=== PATIENT | female | born 1980 | race Caucasian/White ===

== ENCOUNTER → 2019-10-08 17:52 | Outpatient (CLI) | payer OTHER, SELFPAY ==
--- NOTE | ~2019-10-08 | MM_ITS ---
EXAMINATION: MM screening song BI w augustine HISTORY: Screening mammogram TECHNIQUE: Craniocaudal and mediolateral oblique 3-D tomosynthesis images were obtained and synthetic 2-D images were generated. CAD analysis was submitted and interpreted. COMPARISON: None, baseline BREAST PARENCHYMAL COMPOSITION: There are scattered areas of fibroglandular density. FINDINGS: There is no evidence of suspicious mass, calcification, or architectural distortion to sugg est malignancy in either breast. IMPRESSION: 1. No mammographic evidence of malignancy. 2. Recommend routine screening mammography in one year. BI-RADS Category 1: Negative Reviewed, dictated and finalized at location A.
== END ==
PROVIDERS: Visit Provider Nurse Practitioner Obstetrics & Gynecology
DX: Z12.31 Encounter for screening mammogram for malignant neoplasm of breast (principal)
CPT/HCPCS: 77063; 77067

== ENCOUNTER 2020-06-05 09:35 | Outpatient (CLI) | payer OTHER, SELFPAY ==
[2020-06-05 10:07] LABS: Alanine Aminotransferase 15 U/L (4-35); Albumin Level 4.4 g/dL (3.5-5.1); Alkaline Phosphatase 70 U/L (38-126); Anion Gap 6 mmol/L (8-16); Aspartate Amino Transferase 19 U/L (14-36); Bilirubin,Total 0.7 mg/dL (0.2-1.3); Blood Urea Nitrogen 21 mg/dL (7-17); Carbon Dioxide 31 mmol/L (22-30); Chloride 102 mmol/L (98-107); Estimated Glomerular Filt Rate > 60; Glucose 98 mg/dL (65-105); Potassium 4.5 mmol/L (3.4-5.0); Sodium 139 mmol/L (137-145)
[2020-06-05 11:31] LABS: Vitamin D 25 Hydroxy 53.8 ng/mL
== END 2020-06-05 09:36 | disposition home or self-care (01) ==
PROVIDERS: PCP Internal Medicine; Visit Provider Clinical Nurse Specialist
DX: I10 Essential (primary) hypertension (principal); E55.9 Vitamin D deficiency, unspecified
CPT/HCPCS: 36415; 80053; 82306

== ENCOUNTER → 2020-12-16 15:14 | Outpatient (CLI) | payer OTHER, SELFPAY ==
--- NOTE | ~2020-12-16 | MM_ITS ---
EXAMINATION: MM screening song BI w augustine HISTORY: Screening TECHNIQUE: Craniocaudal and mediolateral oblique 3-D tomosynthesis images were obtained and synthetic 2-D images were generated. CAD analysis was submitted and interpreted. COMPARISON: 10/08/2019 BREAST PARENCHYMAL COMPOSITION: There are scattered areas of fibroglandular density. FINDINGS: There is no evidence of suspicious mass, calcification, or architectural distortion to sugg est malignancy in either breast. There has been no suspicious interval change. IMPRESSION: 1. No mammographic evidence of malignancy. 2. Recommend routine screening mammography in one year. BI-RADS Category 1: Negative Reviewed, dictated and finalized at location A.
== END ==
PROVIDERS: Visit Provider Nurse Practitioner Obstetrics & Gynecology
DX: Z12.31 Encounter for screening mammogram for malignant neoplasm of breast (principal)
CPT/HCPCS: 77063; 77067

== ENCOUNTER 2022-03-18 09:37 | Outpatient (CLI) | payer OTHER, SELFPAY ==
--- NOTE | 2022-03-18 10:03 | ECG_ITS ---
Measurements Intervals [place] Rate: 70 P: 50 WA: 150 QRS: 10 QRSD: 89 T: 4 QT: 390 QTc: 423 Interpretive Statements SINUS RHYTHM NORMAL ELECTROCARDIOGRAM NO PREVIOUS ECG AVAILABLE FOR COMPARISON Electronically Signed On 03-18-2022 12:04:46 CDT by Ashok Vee M.D.
== END 2022-03-18 09:38 | disposition home or self-care (01) ==
LOC: ANHCARD 09:38
PROVIDERS: Visit Provider Nurse Practitioner
DX: E66.9 Obesity, unspecified (principal)
CPT/HCPCS: 93005

== ENCOUNTER 2022-03-25 11:43 | Emergency (ER) | payer OTHER, SELFPAY ==
[2022-03-25 12:10] VITALS: BP 178/97; PULSE 88; RESP 18; TEMP 36.5; O2SAT 99
--- NOTE | 2022-03-25 13:55 | ED.GENADULT ---
HPI - General Adult General Chief complaint: Recheck/Abnormal Lab/Rx Stated complaint: high blood pressure Time Seen by Provider: 03/25/22 12:33 History of Present Illness HPI narrative: 42-year-old female history of depression anxiety and hypertension presenting the emergency department for evaluation of elevated blood pressures. Patient states a few years ago she had been taking lisinopril 5 mg daily but she had had weight loss and was able to stop her medications due to improved blood pressure. Patient states over the last few years she has had some weight gain. Patient had a blood pressure checked in December and she states it was within normal limits. Patient had her blood pressure checked a few weeks ago and was noted to be hypertensive by her [employer]. Patient had follow-up again and today noticed that her blood pressure was normal systolic over 107. Patient reports her blood pressure at home was 158/98. Upon arrival to the emergency department her blood pressure was 138/97. Patient denies any complaints with this. Patient has no chest pain or shortness of breath. Patient denies any nausea vomiting diarrhea. Patient denies any headache or change in urination. Related Data Home Medications Medication Instructions Recorded Confirmed sertraline 25 mg tablet (Zoloft) 25 mg PO DAILY 11/29/19 06/05/20 Allergies Allergy/AdvReac Type Severity Reaction Status Date / Time No Known Allergies Allergy Mild Unverified 12/03/08 19:12 Review of Systems Review of Systems: CONSTITUTIONAL: Denies fever, chills, or sweats. EYES: Denies visual changes, redness, or discharge. ENT: Denies rhinorrhea, congestion, sore throat, or otalgia. CARDIOVASCULAR: Denies chest pain, palpitations, or edema. RESPIRATORY: Denies cough or dyspnea. GASTROINTESTINAL: Denies abdominal pain, nausea, vomiting, or diarrhea. GENITOURINARY: Denies dysuria or hematuria. SKIN: Denies rash or itching. MUSCULOSKELETAL: Denies back pain, joint pain, or myalgia. NEUROLOGIC: Denies headache, numbness, or weakness. [facility] Past Medical History Medical History (Updated 03/26/22 @ 00:00 by Delroy Klein) Benign essential HTN Cholecystectomy planned Generalized headaches Miscarriage Family History Family History (Updated 11/29/19 @ 07:30 by Xuan Crowe) Mother Patient's mother is in good health Father Patient's father is in good health Sibling Prediabetes Social History Social History Smoking status: Never smoker Alcohol intake: current Exam Narrative: APPEARANCE: Well appearing, no pain, no distress, well-nourished. HEAD: normocephalic, atraumatic. EYES: PERRLA/EOMI, conjunctivae clear. NOSE: Normal no drainage THROAT: Pharynx clear, no exudate. NECK: Supple. No adenopathy, no masses. RESPIRATORY: Airway patent, respirations nonlabored. Clear to auscultation bilaterally, no rales, rhonchi, wheezing. CARDIOVASCULAR: Regular rate and rhythm without murmurs rubs or gallops. ABDOMINAL: Soft, nontender, nondistended, normal bowel sounds MUSCULOSKELETAL: Moves all extremities. Strength/ROM intact, No edema, No calf tenderness. NEURO: Alert. Cranial nerves II through XII intact. Grossly intact SKIN: Warm, dry. Normal Color Course Course Emergency Course: Patient does have follow-up scheduled on Monday with her primary care physician but she had been encouraged to follow-up with the emergency department today. PCP was paged to see if they want the patient to restart her lisinopril. Vital Signs Vital signs: Vital Signs Temperature 97.7 F 03/25/22 12:10 Pulse Rate 88 03/25/22 12:10 Respiratory Rate 18 03/25/22 12:10 Blood Pressure 178/97 H 03/25/22 12:10 Pulse Oximetry 99 03/25/22 12:10 Oxygen Delivery Room Air 03/25/22 12:10 Temperature 97.7 F 03/25/22 12:10 Pulse Rate 89 03/25/22 14:14 Respiratory Rate 14 03/25/22 14:14 Blood Pressure 158/99 H 03/25/22 14:14 Pulse Oximetry 100 03/25/22 14:1
[2022-03-25 14:14] VITALS: BP 158/99; PULSE 89; RESP 14; O2SAT 100
[2022-03-25] MEDS: lisinopriL 5 MG TABLET PO (14:14)
== END 2022-03-25 14:16 | disposition home or self-care (01) ==
PROVIDERS: Emergency Provider Emergency Medicine; PCP Internal Medicine
DX: I10 Essential (primary) hypertension (principal); F41.9 Anxiety disorder, unspecified; F32.A Depression, unspecified
CPT/HCPCS: 99283; A9270

== ENCOUNTER 2022-04-29 08:31 | Outpatient (CLI) | payer OTHER, SELFPAY ==
[2022-04-29 09:28] LABS: Anion Gap 11 mmol/L (8-16); Blood Urea Nitrogen 14 mg/dL (7-17); Calcium 9.1 mg/dL (8.4-10.2); Carbon Dioxide 29 mmol/L (22-30); Chloride 100 mmol/L (98-107); Estimated Glomerular Filt Rate > 60; Glucose 127 mg/dL (65-110); Potassium 4.2 mmol/L (3.4-5.0); Sodium 140 mmol/L (137-145)
== END 2022-04-29 08:32 | disposition home or self-care (01) ==
PROVIDERS: PCP Internal Medicine; Visit Provider Clinical Nurse Specialist
DX: I10 Essential (primary) hypertension (principal)
CPT/HCPCS: 36415; 80048

== ENCOUNTER → 2022-05-13 10:56 | Outpatient (CLI) | payer OTHER, SELFPAY ==
--- NOTE | ~2022-05-13 | MM_ITS ---
EXAMINATION: MM screening [facility] BI w augustine HISTORY: Screening TECHNIQUE: Craniocaudal and mediolateral oblique 3-D tomosynthesis images were obtained and synthetic 2-D images were generated. CAD analysis was submitted and interpreted. COMPARISON: Comparison to multiple prior studies sequentially, with oldest reviewed study dated 10/07. BREAST PARENCHYMAL COMPOSITION: There are scattered areas of fibroglandular density. FINDINGS: There is no evidence of suspicious mass, calcification, or architectural distortion to sugg est malignancy in either breast. There has been no suspicious interval change. IMPRESSION: 1. No mammographic evidence of malignancy. 2. Recommend routine screening mammography in one year. BI-RADS Category 1: Negative Reviewed, dictated and finalized at location A.
== END ==
PROVIDERS: PCP Internal Medicine; Visit Provider Nurse Practitioner Obstetrics & Gynecology
DX: Z12.31 Encounter for screening mammogram for malignant neoplasm of breast (principal)
CPT/HCPCS: 77063; 77067

== ENCOUNTER 2023-11-17 07:48 | Outpatient (CLI) | payer OTHER, SELFPAY ==
[2023-11-17 08:10] LABS: Basophils Percent Auto 0.5 % (0.2-1.2); Eosinophils Absolute Auto 0.2 K/mm3 (0-0.3); Eosinophils Percent Auto 2.9 % (0-4.4); Hemoglobin 12.8 g/dL (12.0-15.0); Immature Granulocyte Absolute 0.02 K/mm3 (0.00-0.031); Immature Granulocyte Percent A 0.4 % (0-0.5); Lymphocytes Absolute Auto 1.32 K/mm3 (0.9-3.2); Lymphocytes Percent Auto 23.6 % (18.3-44.2); Mean Corpuscular HGB Conc 32.8 g/dl (32-36); Mean Corpuscular Hemoglobin 29.6 pg (26-34); Mean Corpuscular Volume 90.3 fl (80-100); Mean Platelet Volume 10.3 fl (7.4-10.4); Monocytes Absolute Auto 0.3 K/mm3 (0.1-0.6); Neutrophils Absolute Auto 3.8 K/mm3 (1.3-6.7); Neutrophils Percent Auto 67.6 % (45.5-73.1); Platelet Count Result 231 k/mm3 (150-375); Red Blood Count 4.32 M/mm3 (4.2-5.4); Red Cell Distribution Width 13.1 % (11.5-14.5); White Blood Count 5.6 K/mm3 (4.5-10.0)
[2023-11-17 08:17] LABS: Alanine Aminotransferase 10 U/L (6-35); Albumin Level 4.6 g/dL (3.5-5.1); Alkaline Phosphatase 64 U/L (38-126); Anion Gap 4 mmol/L (4-12); Aspartate Amino Transferase 15 U/L (14-36); Bilirubin,Total 0.7 mg/dL (0.2-1.3); Blood Urea Nitrogen 19 mg/dL (7-17); Calcium 10.1 mg/dL (8.4-10.2); Carbon Dioxide 30 mmol/L (22-30); Chloride 106 mmol/L (98-107); Cholesterol 180 mg/dL (0-200); Estimated Glomerular Filt Rate 60; Glucose 99 mg/dL (65-110); HDL Direct 38 mg/dL; Potassium 4.6 mmol/L (3.4-5.0); Sodium 140 mmol/L (137-145); Triglycerides 100 mg/dL (<150)
[2023-11-17 08:28] LABS: LDL Cholesterol Direct 110 mg/dL
[2023-11-17 09:28] LABS: Vitamin D 25 Hydroxy 78.9 ng/mL
== END 2023-11-17 07:49 | disposition home or self-care (01) ==
LOC: ANHLAB 07:49
PROVIDERS: PCP Internal Medicine; Visit Provider Clinical Nurse Specialist
DX: E55.9 Vitamin D deficiency, unspecified (principal); I10 Essential (primary) hypertension; Z13.228 Encounter for screening for other metabolic disorders
CPT/HCPCS: 36415; 80053; 80061; 82306; 84443; 85025

== ENCOUNTER 2024-05-31 10:04 | Outpatient (CLI) | payer OTHER, SELFPAY ==
--- NOTE | ~2024-05-31 | MM_ITS ---
EXAMINATION: MM screening song BI w augustine HISTORY: Screening mammogram TECHNIQUE: Craniocaudal and mediolateral oblique 3-D tomosynthesis images were obtained and synthetic 2-D images were generated. CAD analysis was submitted and interpreted. COMPARISON: 05/13/2022, 12/16/2020, 10/08/2019 BREAST PARENCHYMAL COMPOSITION:Not Dense. The breasts are almost entirely fatty FINDINGS: No suspicious mass, calcification, or architectural distortion are identified in either [place] ast to suggest malignancy. There has been no suspicious interval change. IMPRESSION: No mammographic evidence of malignancy. Recommend routine screening mammography in one year. BI-RADS Category 1: Negative Reviewed, dictated and finalized at location .
== END 2024-05-31 10:05 | disposition home or self-care (01) ==
PROVIDERS: PCP Internal Medicine; Visit Provider Nurse Practitioner Obstetrics & Gynecology
DX: Z12.31 Encounter for screening mammogram for malignant neoplasm of breast (principal)
CPT/HCPCS: 77063; 77067

== ENCOUNTER 2024-07-11 07:58 | Day surgery (SDC) | payer OTHER, SELFPAY ==
[2024-05-16 10:02] VITALS: BMI 33.2
[2024-06-21 11:04] VITALS: BMI 33.0
[2024-07-11 08:39] VITALS: BP 114/76; PULSE 88; RESP 18; TEMP 36.8; O2SAT 98; BMI 32.3
[2024-07-11] MEDS: LACTATED RINGERS 1,000 ML 150 ML IV CONT (08:53)
--- NOTE | 2024-07-11 09:24 | P.HP_ITS ---
History of Present Illness History of Present Illness Consent: Risks, benefits, and alternatives have been discussed and questions answered. Patient agrees to proceed with procedure. Chief complaint: Screening for Neoplasm of Colon Narrative: Ladi Grewal is a 44 year old female presents for screening colonoscopy. Patient's current weight appetite and bowel movements are normal. Patient denies abdominal pain. She has had no bleeding. Family history is nonc ontributory. Review of Systems Review of Systems: All systems reviewed & are unremarkable except as noted in HPI and below PMFSH Past Medical History Medical History Benign essential HTN Cholecystectomy planned Generalized headaches Miscarriage Family History Family History Mother No problems noted. Father Patient's father is in good health Sibling Prediabetes Social History Social History Smoking status: Never smoker Alcohol intake: current Meds Home Medications and Allergies Home Medications ?Medication ?Instructions ?Recorded ?Confirmed ?Type sertraline 50 mg tablet 50 mg PO DAILY 03/28/22 07/11/24 History phentermine 37.5 mg tablet 37.5 mg PO DAILY #30 tabs 05/10/24 07/11/24 Rx topiramate 25 mg tablet (Topamax) 25 mg PO DAILY #90 tabs 05/10/24 07/11/24 Rx ascorbic acid (vitamin C) 500 mg 500 mg PO DAILY 06/21/24 07/11/24 History tablet cholecalciferol (vitamin D3) 50 50 mcg PO DAILY 06/21/24 07/11/24 History mcg (2,000 unit) capsule (Vitamin D3) lisinopril 5 mg tablet 5 mg PO DAILY #90 tabs 06/24/24 07/11/24 Rx Allergies Allergy/AdvReac Type Severity Reaction Status Date / Time No Known Allergies Allergy Mild Verified 07/11/24 08:35 Vital Signs Vital Signs - 24 hr 07/11/24 08:39 Temperature 98.2 F Pulse Rate 88 Respiratory Rate 18 Blood Pressure 114/76 Pulse Oximetry 98 Oxygen Delivery Room Air Exam Narrative: Physical exam reveals patient to be alert. Vital signs stable. HEENT exam is unremarkable. Patient is anicteric. Lungs are clear to auscultation and to percussion. Heart is without murmur or extra sounds. Abdomen bowel sounds are present soft nontender with no organomegaly. Digital external rectal exam normal. Assessment and Plan Assessment and plan (1) Screening for colon cancer: Code(s): Z12.11 - Encounter for screening for malignant neoplasm of colon Status: Acute Assessment and Plan: Patient presents today for neoplasia screening colonoscopy. Further recommendations may be given after endoscopy.
--- NOTE | 2024-07-11 09:31 | P.PNAN_ITS ---
Anes - Initial Pre Proc Eval Procedure: Operation Date: 07/11/24 10:15 Proposed Procedures p Screening Colonoscopy - Hosea Woodward MD Date/Time: 07/11/24 09:31 Surgeon: Hosea Woodward MD Pre Op Diagnosis: Screening for Neoplasm of Colon Patient Data Age: 44 Gender: F Height: 1.57 m Weight: 80.2 kg Last Vital Signs Temp 36.8 C 07/11/24 08:39 Pulse 88 07/11/24 08:39 Resp 18 07/11/24 08:39 BP 114/76 07/11/24 08:39 Pulse Ox 98 07/11/24 08:39 O2 Del Method Room Air 07/11/24 08:39 Allergies Allergy/AdvReac Type Severity Reaction Status Date / Time No Known Allergies Allergy Mild Verified 07/11/24 08:35 Home Medications ?Medication ?Instructions ?Recorded ?Confirmed ?Type sertraline 50 mg tablet 50 mg PO DAILY 03/28/22 07/11/24 History phentermine 37.5 mg tablet 37.5 mg PO DAILY #30 tabs 05/10/24 07/11/24 Rx topiramate 25 mg tablet (Topamax) 25 mg PO DAILY #90 tabs 05/10/24 07/11/24 Rx ascorbic acid (vitamin C) 500 mg 500 mg PO DAILY 06/21/24 07/11/24 History tablet cholecalciferol (vitamin D3) 50 50 mcg PO DAILY 06/21/24 07/11/24 History mcg (2,000 unit) capsule (Vitamin D3) lisinopril 5 mg tablet 5 mg PO DAILY #90 tabs 06/24/24 07/11/24 Rx Patient hx anesthesia problems: none Family hx anesthesia problems: none Results Review: All pre-operative results and documents have been reviewed as part of the pre- operative evaluation. [facility] Past Medical History Medical History (Updated 07/11/24 @ 09:31 by Robi Gomez MD) Benign essential HTN Miscarriage Generalized headaches Surgical History Surgical History (Updated 07/11/24 @ 09:31 by Robi Gomez MD) History of cholecystectomy Family History Family History Mother No problems noted. Father Patient's father is in good health Sibling Prediabetes Social History Social History Smoking status: Never smoker Alcohol intake: current Anes - Eval Final PreProcedure Day of Procedure 07/11/24 09:31 Patient weight: obese Heart: regular rate and rhythm Lungs: clear to auscultation Airway: Mallampati scale class II Neurological: alert and oriented Last oral intake: >/= 8 hours ASA classification: II Emergent: no Anesthetic plan: proceed Anesthesia type and monitoring: general GIVS and standard monitoring Results Review: All pre-operative results and documents have been reviewed as part of the pre- operative evaluation. Informed Consent: The patient's anesthetic plan and its attendant risks and benefits were discussed with the patient/family/POA. Questions were solicited and answers provided to the satisfaction of the patient/family/POA.
[2024-07-11 10:40] VITALS: BP 86/51; PULSE 90; RESP 12; O2SAT 98
[2024-07-11 10:50] VITALS: BP 103/65; PULSE 84; RESP 16; O2SAT 100
[2024-07-11 11:00] VITALS: BP 93/65; PULSE 85; RESP 16; O2SAT 100
--- NOTE | 2024-07-11 11:14 | WPDANESPN ---
Anes - Prog Note Post-Op Date/Time: 07/11/24 11:14 Cardiovascular status: normal Respiratory status: normal Airway patency: baseline Mental status: baseline Post-Op hydration status: normal Vital Signs: Last Vital Signs Temp 36.8 C 07/11/24 08:39 Pulse 84 07/11/24 10:50 Resp 16 07/11/24 10:50 BP 103/65 07/11/24 10:50 Pulse Ox 100 07/11/24 10:50 O2 Del Method Room Air 07/11/24 10:50 Pain Score (VAS): 0/10 I/O: Intake & Output 07/10/24 07/11/24 07/11/24 23:59 07:59 15:59 Intake Total 500 Balance 500 Patient Feedback: Patient satisfied with anesthetic care.
== END 2024-07-11 11:14 | disposition home or self-care (01) ==
PROVIDERS: PCP Internal Medicine; Visit Provider Internal Medicine Gastroenterology
PROC: 0DJD8ZZ Inspection of Lower Intestinal Tract, Via Natural or Artificial Opening Endoscopic (ICD-10-PCS; CPT 45378; principal; 2024-07-11 10:15)
DX: Z12.11 Encounter for screening for malignant neoplasm of colon (principal); K64.8 Other hemorrhoids
CPT/HCPCS: 45378

== ENCOUNTER 2025-06-06 09:52 | Outpatient (CLI) | payer OTHER, SELFPAY ==
--- NOTE | ~2025-06-06 | MM_ITS ---
EXAMINATION: MM screening song BI w augustine HISTORY: Screening TECHNIQUE: Craniocaudal and mediolateral oblique 3-D tomosynthesis images were obtained and synthetic 2-D images were generated. CAD analysis was submitted and interpreted. COMPARISON: Comparison to multiple prior studies sequentially, with oldest reviewed study dated 05/31/2024. BREAST PARENCHYMAL COMPOSITION: Not Dense: The breasts are almost entirely fatty. FINDINGS: There is no evidence of suspicious mass, calcification, or architectural distortion to suggest malignancy in either breast. There has been no suspicious interval change. IMPRESSION: 1. No mammographic evidence of malignancy. 2. Recommend routine screening mammography in one year. BI-RADS Category 1: Negative Reviewed, dictated and finalized at location O. [employer]
== END 2025-06-06 09:53 | disposition home or self-care (01) ==
LOC: MICIMG 09:54
PROVIDERS: PCP Internal Medicine; Visit Provider Obstetrics & Gynecology
DX: Z12.31 Encounter for screening mammogram for malignant neoplasm of breast (principal)
CPT/HCPCS: 77063; 77067